=== PATIENT | female | born 1990 | race Two or more races ===

== ENCOUNTER 2018-08-10 08:49 | Emergency (ER) | payer OTHER ==
--- NOTE | 2018-08-10 10:01 | EDM.PDOC ---
ED HPI GENERAL MEDICAL PROBLEM - General Chief Complaint: Lower Extremity Injury/Pain Stated Complaint: INJURED ANKLE Time Seen by Provider: 08/10/18 09:02 Source of Information: Reports: Patient History Limitations: Reports: No Limitations - History of Present Illness INITIAL COMMENTS - FREE TEXT/NARRATIVE: History of present illness: []Patient twisted her ankle 2 days ago and pain and swelling to the left ankle. Patient states she has had sprained ankles in the past but she is unable to bear weight and this feels worse. She denies any other injuries. Review of systems: As per history of present illness and below otherwise all systems reviewed and negative. Past medical history: As per history of present illness and as reviewed below otherwise noncontributory. Surgical history: As per history of present illness and as reviewed below otherwise noncontributory. Social history: No reported history of drug or alcohol abuse. Family history: As per history of present illness and as reviewed below otherwise noncontributory. Physical exam: General: Well developed, well nourished in NAD HEENT: Atraumatic, normocephalic, pupils reactive, negative for conjunctival pallor or scleral icterus, mucous membranes moist, throat clear, neck supple, nontender, trachea midline. Lungs: Clear to auscultation, breath sounds equal bilaterally, chest nontender. Heart: S1S2, regular, negative for clicks, rubs, or JVD. Abdomen: NABS, Soft, nondistended, nontender. Negative for masses or hepatosplenomegaly. Negative for costovertebral tenderness. Pelvis: Stable nontender. Genitourinary: Deferred. Rectal: Deferred. Extremities: Swelling over lateral malleolus of the right ankle, tenderness posteriorly, negative for cords or calf pain. Neurovascular unremarkable. Neuro: Awake, alert, oriented. Cranial nerves II through XII unremarkable. Cerebellum unremarkable. Motor and sensory unremarkable throughout. Exam nonfocal. Skin:warm and dry Diagnostics: Ankle x-ray negative, crutches, air splint Therapeutics: Declined pain meds ED Course: Stable Impression: Ankle sprain Prescriptions: None Plan: Ibuprofen, ice, elevation use crutches for ambulation follow-up with primary care. Definitive disposition and diagnosis as appropriate pending reevaluation and review of above. left ankle Pain Score (Numeric/FACES): 4 - Related Data Allergies Allergy/AdvReac Type Severity Reaction Status Date / Time No Known Allergies Allergy Verified 08/10/18 09:13 Home Meds: Home Meds . [No Known Home Meds] 08/10/18 [History] Social & Family History - Tobacco Use Smoking Status *Q: Never Smoker - Caffeine Use Caffeine Use: Reports: Soda - Recreational Drug Use Recreational Drug Use: No Review of Systems - Review of Systems Review Of Systems: ROS reveals no pertinent complaints other than HPI. ED EXAM, GENERAL - Physical Exam Exam: See Below (See history of present illness) Course - Vital Signs Last Recorded V/S: Last Vital Signs Temp 98.0 F 08/10/18 09:16 Pulse 107 H 08/10/18 09:16 Resp 16 08/10/18 09:16 BP 130/78 08/10/18 09:16 Pulse Ox 98 08/10/18 09:16 - Orders/Labs/Meds Orders: Active Orders 24 hr Category Date Time Status Ankle Min 3V Lt [CR] Stat Exams 08/10/18 09:20 Taken Departure - Departure Time of Disposition: 10:00 Disposition: Home, Self-Care 01 Condition: Good Clinical Impression: Left ankle sprain Qualifiers: Encounter type: initial encounter Involved ligament of ankle: unspecified ligament Qualified Code(s): S93.402A - Sprain of unspecified ligament of left ankle, initial encounter - Discharge Information *PRESCRIPTION DRUG MONITORING PROGRAM REVIEWED*: No *COPY OF PRESCRIPTION DRUG MONITORING REPORT IN PATIENT CRISTOPHER: No Referrals: PCP,Unknown [Primary Care Provider] - Additional Instructions: The following information is given to patients seen in the emergency department who are being discharged to home. This information is to outline your options for follow-up care. We provide all patients seen in our emergency department with a follow-up referral. The need for follow-up, as well as the timing and circumstances, are variable depending upon the specifics of your emergency department visit. If you don't have a primary care physician on staff, we will provide you with a referral. We always advise you to contact your personal physician following an emergency department visit to inform them of the circumstance of the visit and for follow-up with them and/or the need for any referrals to a consulting specialist. The emergency department will also refer you to a specialist when appropriate. This referral assures that you have the opportunity for follow-up care with a specialist. All of these measure are taken in an effort to provide you with optimal care, which includes your follow-up. Under all circumstances we always encourage you to contact your private physician who remains a resource for coordinating your care. When calling for follow-up care, please make the office aware that this follow-up is from your recent emergency room visit. If for any reason you are refused follow-up, please contact the [facility] Emergency Department at and asked to speak to the emergency department charge nurse. Ice, elevation, use crutches for ambulation, follow-up with primary care, return if symptoms worsen or change. [facility] [address] [place] [address] - My Orders Last 24 Hours: My Active Orders 08/10/18 09:20 Ankle Min 3V Lt [CR] Stat - Assessment/Plan Last 24 Hours: My Active Orders 08/10/18 09:20 Ankle Min 3V Lt [CR] Stat
--- NOTE | 2018-08-10 10:05 | CR ---
EXAMINATION: Left ankle HISTORY: Pain COMPARISON: Mild TECHNIQUE: 3 views FINDINGS/IMPRESSION: There is a a very tiny ossific density just inferior to the distal fibula, possibly a tiny avulsion injury. Bone mineralization, ankle mortise and joint spaces are preserved. Moderate soft tissue swelling overlying the lateral malleolus.
== END 2018-08-10 10:16 | disposition home or self-care (01) ==
LOC: MW.ED 08:49
DX: S93.402A Sprain of unspecified ligament of left ankle, initial encounter (principal); X58.XXXA Exposure to other specified factors, initial encounter
CPT/HCPCS: 73610-26-LT; 73610-LT; 99283; 99283-25

== ENCOUNTER 2020-08-10 16:48 | Emergency (ER) | payer BC ==
[2020-08-10] MEDS ORDERED: Ketorolac 30 MG/ML SDV IM ONE (17:30)
--- NOTE | 2020-08-10 17:30 | EDM.PDOC ---
ED HPI GENERAL MEDICAL PROBLEM - General Chief Complaint: General Stated Complaint: INJURED LUPILLO Time Seen by Provider: 08/10/20 17:07 - History of Present Illness INITIAL COMMENTS - FREE TEXT/NARRATIVE: History of present illness: [] The patient was chasing children to keep them from falling down stairs and she slipped and fell down 3 stairs in a seated position. She complains of pain in the low back and down the right leg. It runs down the posterior leg and hip. She was numb in the saddle area briefly afterwards. The patient now has pain with movement and denies any other injury. Review of systems: As per history of present illness and below otherwise all systems reviewed and negative. Past medical history: As per history of present illness and as reviewed below otherwise noncontributory. Surgical history: As per history of present illness and as reviewed below otherwise noncontributory. Social history: No reported history of drug or alcohol abuse. Family history: As per history of present illness and as reviewed below otherwise noncontributory. Physical exam: Constitutional - well developed, well-nourished and in no acute distress HEENT - normocephalic, no evidence of trauma - external nose and mouth normal - no mass in neck and no JVD - mucosae moist EYES - full EOM, PERRL, no icterus - no evidence of inflammation, injection, or drainage Respiratory - no respiratory distress, equal bilateral expansion, lungs clear to auscultation and no abnormal lung sounds Cardiovascular - Regular Rhythm with S1 and S2 appreciated and no murmur, gallop or rub. GI - abdomen soft without distension or organomegaly - normal bowel sounds - no guard or rebound Musculoskeletal tender in the lowest L-spine and around the sacroiliac area on the right. Straight leg raise on the right causes pain in the thigh on the right. There is no pelvic compression tenderness or hip tenderness. The leg raise on the left causes no radicular pain or crossover. Otherwise no gross deformity of long bones or joints - no tenderness, swelling or edema Neurologic - Alert and oriented times four - CN II-XII grossly intact - motor sensory and coordination symmetrically normal Psychiatric - appropriate mood and affect with normal thought content Hematologic - No petechiae or purpura - mucosa appropriate color and sclera not pale - normal nail bed color and refill Integument - no rash or evidence of trauma - normal turgor Diagnostics: [] Therapeutics: [] Impression: [] Plan: [] Definitive disposition and diagnosis as appropriate pending reevaluation and review of above. Tailbone Pain Score (Numeric/FACES): 8 - Related Data Allergies Allergy/AdvReac Type Severity Reaction Status Date / Time No Known Allergies Allergy Verified 08/10/20 17:10 Home Meds: Home Meds . [No Known Home Meds] 08/10/18 [History] Past Medical History - Past Health History Medical/Surgical History: Denies Medical/Surgical History - Infectious Disease History Infectious Disease History: Reports: None Social & Family History - Family History Family Medical History: No Pertinent Family History - Tobacco Use Tobacco Use Status *Q: Never Tobacco User - Caffeine Use Caffeine Use: Reports: None - Recreational Drug Use Recreational Drug Use: No ED ROS GENERAL - Review of Systems Review Of Systems: Comprehensive ROS is negative, except as noted in HPI. ED EXAM, GENERAL - Physical Exam Exam: See Below Course - Vital Signs Text/Narrative:: Revealed no fracture. The coccyx is in multiple parts but not displaced. This and not necessarily pathologic. The patient appeared improved in terms of her ability to move and was able to walk. She did not want a muscle relaxant that would make her sleepy because she is around kids at home and at work. I told her to buy a circular pillow and use that for seeding and warned her about cauda equina warnings. Last Recorded V/S: Last Vital Signs Temp 36.8 C 08/10/20 17:10 Pulse 86 08/10/20 17:10 Resp 18 08/10/20 17:10 BP 127/73 08/10/20 17:10 Pulse Ox 99 08/10/20 17:10 - Orders/Labs/Meds Orders: Active Orders 24 hr Category Date Time Status Lumbar Spine 2 or 3V [CR] Stat Exams 08/10/20 17:27 Taken Pelvis 1V or 2V [CR] Stat Exams 08/10/20 17:27 Taken Labs: Laboratory Tests 08/10/20 Range/Units 17:30 Urine HCG, Qual NEGATIVE (NEGATIVE) Meds: Medications Discontinued Medications Generic Name Dose Route Start Last Admin Trade Name Freq PRN Reason Stop Dose Admin Ketorolac Tromethamine 30 mg 08/10/20 17:30 08/10/20 17:55 Ketorolac 30 Mg/Ml Sdv IM 08/10/20 17:31 30 mg ONETIME ONE Administration Departure - Departure Time of Disposition: 18:18 Disposition: Home, Self-Care 01 Condition: Good Clinical Impression: Fall, in, on, steps, Sacral contusion - Discharge Information Instructions: Fall Prevention in the Home, Adult, [id number], Tailbone Injury, [id number] Referrals: Brittany Mera, [employer] [Primary Care Provider] - Forms: ED Department Discharge Additional Instructions: NSAIDs for pain. If you lose feeling in your feet or the saddle area where you sit or you lose movement of your feet or legs or you have loss of control of your bowel or bladder you must consider in the emergency and return immediately [facility] [address] [place], [place] [id number] [place] [address] The following information is given to patients seen in the emergency department who are being discharged to home. This information is to outline your options for follow-up care. We provide all patients seen in our emergency department with a follow-up referral. The need for follow-up, as well as the timing and circumstances, are variable depending upon the specifics of your emergency department visit. If you don't have a primary care physician on staff, we will provide you with a referral. We always advise you to contact your personal physician following an emergency department visit to inform them of the circumstance of the visit and for follow-up with them and/or the need for any referrals to a consulting specialist. The emergency department will also refer you to a specialist when appropriate. This referral assures that you have the opportunity for follow-up care with a specialist. All of these measure are taken in an effort to provide you with optimal care, which includes your follow-up. Under all circumstances we always encourage you to contact your private physician who remains a resource for coordinating your care. When calling for follow-up care, please make the office aware that this follow-up is from your recent emergency room visit. If for any reason you are refused follow-up, please contact the [facility] Emergency Department at and asked to speak to the emergency department charge nurse. Sepsis Event Note (ED) - Evaluation Sepsis Screening Result: No Definite Risk - Focused Exam Vital Signs: Vital Signs Temp Pulse Resp BP Pulse Ox 08/10/20 17:10 36.8 C 86 18 127/73 99 - My Orders Last 24 Hours: My Active Orders 08/10/20 17:27 Lumbar Spine 2 or 3V [CR] Stat Pelvis 1V or 2V [CR] Stat - Assessment/Plan Last 24 Hours: My Active Orders 08/10/20 17:27 Lumbar Spine 2 or 3V [CR] Stat Pelvis 1V or 2V [CR] Stat
--- NOTE | 2020-08-10 18:47 | CR ---
INDICATION: Injury. TECHNIQUE: Three views lumbar spine. Single-view pelvis. FINDINGS: No acute fracture, dislocation, or subluxation in lumbar spine or pelvis. IUD. Moderate amount of stool in the colon greatest in the right colon. Mild narrowing L5 interspace. Remainder negative. Dictated by Ankit Yoder MD @ Aug 10 2020 6:44PM Signed by Dr. Ankit Yoder @ Aug 10 2020 6:46PM
--- NOTE | 2020-08-10 18:47 | CR ---
INDICATION: Injury. TECHNIQUE: Three views lumbar spine. Single-view pelvis. FINDINGS: No acute fracture dislocation, or subluxation in lumbar spine or pelvis. IUD. Moderate amount of stool in the colon greatest in the right colon. Mild narrowing L5 interspace. Remainder negative. Dictated by Ankit Yoder MD @ Aug 10 2020 6:44PM Signed by Dr. Ankit Yoder @ Aug 10 2020 6:46PM
== END 2020-08-10 18:36 | disposition home or self-care (01) ==
LOC: MW.ED 16:48
DX: S30.0XXA Contusion of lower back and pelvis, initial encounter (principal); W10.8XXA Fall (on) (from) other stairs and steps, initial encounter
CPT/HCPCS: 72100; 72170; 81025; 96372; 99284; J1885

== ENCOUNTER 2022-08-26 23:04 | Emergency (ER) | payer BC ==
[2022-08-27] MEDS ORDERED: Ketorolac 30 MG/ML SDV IM STA (00:05)
== END 2022-08-27 00:39 | disposition home or self-care (01) ==
LOC: MW.ED 23:04
DX: M47.898 Other spondylosis, sacral and sacrococcygeal region (principal)
CPT/HCPCS: 96372; 99283; J1885

== ENCOUNTER 2023-08-04 09:48 | Emergency (ER) | payer OTHER ==
[2023-08-04 10:17] LABS: BASOPHILS ABSOLUTE AUTO 0.05 K/uL (0.00-0.20); BASOPHILS PERCENT AUTO 0.5 % (0.0-1.0); EOSINOPHILS ABSOLUTE AUTO 0.09 K/uL (0.00-0.45); EOSINOPHILS PERCENT AUTO 0.9 % (0.0-6.0); HEMATOCRIT 35.4 % (37.0-47.0); HEMOGLOBIN 11.6 g/dL (12.0-16.0); IMMATURE GRAN ABSOLUTE AUTO 0.08 K/uL (0.00-0.05); IMMATURE GRAN PERCENT AUTO 0.8 % (0.0-0.4); LYMPHOCYTES PERCENT AUTO 21.4 % (24.0-44.0); MEAN CORPUSCULAR HEMOGLOBIN 27.2 pg (28.0-32.0); MEAN CORPUSCULAR HGB CONC 32.8 g/dL (32.0-36.0); MEAN CORPUSCULAR VOLUME 82.9 fL (83.0-99.0); MEAN PLATELET VOLUME 9.7 fL (9.4-12.3); MONOCYTES ABSOLUTE AUTO 0.52 K/uL (0.00-0.80); MONOCYTES PERCENT AUTO 5.1 % (0.0-8.0); NEUTROPHILS ABSOLUTE AUTO 7.34 K/uL (1.80-7.70); NEUTROPHILS PERCENT AUTO 71.3 % (41.0-71.0); PLATELET COUNT,PLT 437 K/uL (150-400); RED BLOOD CELL COUNT 4.27 M/uL (4.10-5.30); WHITE BLOOD CELL COUNT,WBC 10.28 K/uL (3.9-11.3)
[2023-08-04 10:46] LABS: BILIRUBIN,URINE NEGATIVE (NEGATIVE); GLUCOSE,URINE NEGATIVE (NEGATIVE); KETONES,URINE 15 mg/dL (NEGATIVE); LEUKOCYTE ESTERASE,URINE TRACE (NEGATIVE); NITRITE,URINE NEGATIVE (NEGATIVE); OCCULT BLOOD,URINE TRACE-INTACT (NEGATIVE); PH,URINE 6.5 (5.0-8.0); PROTEIN,URINE 100 mg/dL (NEGATIVE); UROBILINOGEN,URINE 0.2 EU/dL (<2.0)
[2023-08-04 10:51] LABS: A/G RATIO 0.5 (0.9-1.6); ALBUMIN 2.6 g/dL (3.4-5.0); BILIRUBIN TOTAL 0.2 mg/dL (0.2-1.0); CARBON DIOXIDE,CO2 20.2 mmol/L (21.0-32.0); CREATININE 0.7 mg/dL (0.6-1.0); EST CRCL DRUG DOSING (CG) 99.63 mL/min; POTASSIUM,K 3.8 mmol/L (3.5-5.1); PROTEIN TOTAL,TP 7.8 g/dL (6.4-8.2)
[2023-08-04 10:57] LABS: APPEARANCE,URINE SLT CLOUDY; COLOR,URINE DARK YELLOW
[2023-08-04 11:02] LABS: AMORPHOUS SEDIMENT,URINE FEW (NEGATIVE); BACTERIA,URINE FEW (NEGATIVE); EPITHELIAL CELLS,URINE MANY (NONE-FEW); MUCUS,URINE MODERATE (NONE-MOD); RBC,URINE 0-2 (0-2/HPF)
[2023-08-04 11:10] LABS: CORONAVIRUS COVID-19 NAA NEGATIVE (NEGATIVE); INFLUENZA A NAA NEGATIVE (NEGATIVE); INFLUENZA B NAA NEGATIVE (NEGATIVE); RESPIRATORY SYNCYTIAL VIR NAA NEGATIVE (NEGATIVE)
[2023-08-04] MEDS: Sodium Chloride 0.9% 1,000 ML IV ONE (11:22)
[2023-08-04] MEDS: Promethazine 12.5 MG Supp RECTAL ONE (11:26)
[2023-08-04] MEDS: Cephalexin 500 MG Cap PO ONE (12:36)
== END 2023-08-04 12:40 | disposition home or self-care (01) ==
LOC: MW.ED 09:48
DX: O21.9 Vomiting of pregnancy, unspecified (principal); Z3A.15 15 weeks gestation of pregnancy; Z75.8 Other problems related to medical facilities and other health care
CPT/HCPCS: 0241U; 36415; 80053; 81001; 81025; 83690; 85025; 87086; 96360; 99284; A9270; J7030; 99283